=== PATIENT | male | born 1990 | race Caucasian/White ===

== ENCOUNTER 2018-02-20 20:23 | Emergency (ER) | payer MEDICAID, OTHER ==
--- NOTE | 2018-02-20 21:16 | ER Document Report ---
ED General - General Chief Complaint: lower back pain Stated Complaint: LOWER BACK PAIN Time Seen by Provider: 02/20/18 21:16 Mode of Arrival: Ambulatory Information source: Patient, [facility] Records Notes: 27-year-old male with no reported past medical history presents with complaint of right low back pain that started 2 weeks prior to arrival. Patient states that he works at a [employer] and 2 weeks ago had a patient fall to the ground. He states the patient was approximately 200 pounds and he lifted him independently back onto his wheelchair. Patient states since then he has had an aching dull pain that initially improved but has worsened over the last 2 days. Patient describes the pain as throbbing, constant and now with radiation down his right leg. He denies any fever, chills, saddle anesthesia, urinary retention, fecal incontinence, history of IV drug abuse. Patient has tried Motrin without relief. He denies leg weakness. TRAVEL OUTSIDE OF THE [place] IN LAST 30 DAYS: No - HPI Onset: Other Onset/Duration: Gradual, Persistent, Worse Quality of pain: Throbbing Severity: Moderate Associated symptoms: denies: Body/muscle aches, Chest pain, Productive cough, Fever, Nausea, Vomiting, Shortness of breath, Sweating, Weakness Exacerbated by: Movement, Walking Relieved by: Remaining still Similar symptoms previously: Yes Recently seen / treated by doctor: No - Related Data Allergies/Adverse Reactions: amoxicillin [From Augmentin] Allergy (Verified 02/20/18 20:27) cefixime [From Suprax] Allergy (Verified 02/20/18 20:27) clavulanic acid [From Augmentin] Allergy (Verified 02/20/18 20:27) Past Medical History - General Information source: Patient, [facility] Records - Social History Smoking Status: Current Every Day Smoker Cigarette use (# per day): Yes - 5 Smoking Education Provided: Yes - Smoking cessation counseling was provided for 4 minutes at the bedside Frequency of alcohol use: None Drug Abuse: None Lives with: Family Family History: Reviewed & Not Pertinent Patient has suicidal ideation: No Patient has homicidal ideation: No - Medical History Medical History: Negative Review of Systems - Review of Systems Notes: REVIEW OF SYSTEMS: CONSTITUTIONAL : Denies fever, chills, or sweats. Denies recent illness. Denies weight loss, recent hospitalizations. EENT: Denies visual changes, eye pain. Denies sore throat, oral lesions, difficulty swallowing. CARDIOVASCULAR: Denies chest pain. Denies palpitations. Denies lower extremity edema. RESPIRATORY: Denies cough. Denies shortness of breath, wheezing. GASTROINTESTINAL: Denies abdominal pain or distention. Denies nausea, vomiting , or diarrhea. Denies blood in vomitus, stools, or per rectum. Denies black, tarry stools. Denies constipation. GENITOURINARY: Denies difficulty urinating, painful urination, frequency, blood in urine, testicular pain or penile discharge. MUSCULOSKELETAL: Denies neck pain or stiffness. Denies joint pain or swelling. SKIN: Denies rash, lesions or sores. HEMATOLOGIC : Denies easy bruising or bleeding. LYMPHATIC: Denies swollen glands. NEUROLOGICAL: Denies confusion or altered mental status. Denies loss of consciousness. Denies dizziness or lightheadedness. Denies headache. Denies weakness or paralysis. Denies problems difficulty with ambulation, slurred speech. Denies sensory loss, numbness, or tingling. Denies seizures. PSYCHIATRIC: Denies anxiety or stress. Denies depression, suicidal ideation, or Physical Exam - Vital signs Vitals: Temp Pulse Resp BP Pulse Ox 98.8 F 72 16 125/81 97 02/20/18 20:33 02/20/18 20:33 02/20/18 20:33 02/20/18 20:33 02/20/18 20:33 Interpretation: Normal - Notes Notes: PHYSICAL EXAMINATION: GENERAL: Well-appearing, well-nourished and in no acute distress. HEAD: Atraumatic, normocephalic. EYES: Pupils equal round and reactive to light, extraocular movements intact, sclera anicteric, conjunctiva are normal. ENT: Nares patent, oropharynx clear without exudates. Moist mucous membranes. NECK: Normal range of motion, supple without lymphadenopathy LUNGS: Breath sounds clear to auscultation bilaterally and equal. No wheezes rales or rhonchi. HEART: Regular rate and rhythm without murmurs ABDOMEN: Soft, nontender, nondistended abdomen. No guarding, no rebound. No masses appreciated. Musculoskeletal: Normal range of motion, no pitting or edema. No cyanosis. Bilateral paraspinal muscular tenderness of the lumbar spine. No midline tenderness. 5/5 dorsi and plantar flexion. Patient ambulates without difficulty. He is able to go up on his toes and up on his heels. NEUROLOGICAL: Cranial nerves grossly intact. Normal speech, normal gait. Normal sensory, motor exams. Straight leg negative bilaterally. PSYCH: Normal mood, normal affect. SKIN: Warm, Dry, normal turgor, no rashes or lesions noted. Course - Re-evaluation Re-evalutation: 02/20/18 22:06 27-year-old male presents with right-sided low back pain after picking up a patient who fell at work approximately 2 weeks ago. Patient describes the pain as aching, throbbing with radiation to his right lower extremity. Vital signs stable upon arrival. Patient does not appear toxic or dehydrated. He is in no acute distress. Patient is without any focal neurologic deficits. He ambulates without difficulty. He is able to go up on his toes and up on his heels. He has no red flag symptoms. Presentation of a well appearing patient complaining of acute back pain. No rapid progression of symptoms, systemic symptoms including fevers, chills, weight loss, history of recent bacterial infection, bilateral symptoms, numbness, weakness, difficulty walking, urinary retention or bowel incontinence, personal history of cancer, immunosuppression, diabetes, known AAA, or history of IV drug use. Exam is without point tenderness over vertebral bodies, pulsatile abdominal mass, and patient has symmetric and intact lower extremity strength, sensation, and reflexes without clonus. 2+ symmetric medial malleolar and dorsalis pedis pulses Based on history and physical, I have a very low suspicion of a concerning etiology of pain including epidural compression syndrome, spinal infection, transverse myelitis, malignancy, abdominal aortic aneurysm, renal colic, acute lower extremity claudication, neurogenic claudication, ankylosing spondylitis, or other intra-abdominal process. Due to absence of concerning risk factors in history and physical as well as absence of rapidly progressive, severe, or bilateral symptoms, will defer imaging at this point. Plan to manage conservatively with outpatient analgesia, analgesia, and physical therapy. -Naprosyn, prednisone, flexeril - Continue normal daily activities as tolerated by pain - Instruct to follow up with primary care provider if symptoms not improving - Provide careful return precautions and concerning symptoms to watch for. 02/21/18 02:35 - Vital Signs Vital signs: Temp Pulse Resp BP Pulse Ox 97.8 F 60 14 113/74 97 02/20/18 22:44 02/20/18 22:44 02/20/18 22:44 02/20/18 22:44 02/20/18 22:44 Discharge - Discharge Clinical Impression: Low back pain Qualifiers: Chronicity: acute Back pain laterality: right Sciatica presence: with sciatica Sciatica laterality: sciatica of right side Qualified Code(s): M54.41 - Lumbago with sciatica, right side Injury caused by lifting Qualifiers: Encounter type: initial encounter Qualified Code(s): X50.0XXA - Overexertion from strenuous movement or load, initial encounter Condition: Good Disposition: HOME, SELF-CARE Instructions: Low Back Pain ([facility]), Pain Medication Injection ([facility]), Warm Packs ([facility]) Additional Instructions: You have been seen in the Emergency Department (ED) today for back pain. Your workup and exam have not shown any acute abnormalities and you are likely suffering from muscle strain or possible problems with your discs, but there is no treatment that will fix your symptoms at this time. Please take the naproxen that has been prescribed as directed. You should also purchase a local lidocaine cream such as "aspercreme with lidocaine" and use per bottle instructions to the affected area. Apply heat to the area as often as you are able. Continue to keep active and avoid prolonged periods of bed rest. Please follow up with your doctor as soon as possible regarding today's ED visit and your back pain. Return to the ED for worsening back pain, fever, weakness or numbness of either leg, or if you develop either (1) an inability to urinate or have bowel movements, or (2) loss of your ability to control your bathroom functions (if you start having "accidents"), or if you develop other new symptoms that concern you.concern you. Prescriptions: Cyclobenzaprine HCl [Flexeril 10 mg Tablet] 10 mg PO Q12H #12 tablet Naproxen [Naprosyn] 500 mg PO BID #20 tablet Prednisone [Deltasone 20 mg Tablet] 3 tab PO DAILY 5 Days #15 tablet Forms: Return to Work Referrals: LUIS A MONTES MD [ACTIVE STAFF] - Follow up as needed
[2018-02-20] MEDS ORDERED: HYDROMORPHONE HCL INJ/PF 2 MG/ML AMPULE IM ONE (21:21)
[2018-02-20] MEDS ORDERED: DIAZEPAM 5 MG TABLET PO ONE (21:22)
[2018-02-20] MEDS ORDERED: ACETAMINOPHEN 325 MG TABLET PO ONE (21:22)
[2018-02-20] MEDS ORDERED: KETOROLAC TROMETHAMINE 60 MG/2 ML SDV IM ONE (21:22)
[2018-02-20 22:53] VITALS: BP 113/74
== END 2018-02-20 22:56 | disposition home or self-care (01) ==
LOC: ER 20:23
DX: M54.41 Lumbago with sciatica, right side (principal); M79.604 Pain in right leg; X50.0XXA Overexertion from strenuous movement or load, initial encounter; F17.210 Nicotine dependence, cigarettes, uncomplicated
CPT/HCPCS: 99406; 99283; 96372; J1885; J1170